=== PATIENT | female | born 1955 | race Caucasian/White ===

== ENCOUNTER 2018-06-18 10:02 | Observation (INO) ==
[2018-06-18] MEDS ORDERED: Temazepam 15 MG Capsule PO PRN (17:22)
[2018-06-18] MEDS ORDERED: Acetaminophen 325 MG Tablet PO PRN (17:22)
[2018-06-18] MEDS ORDERED: Bisacodyl 10 MG Supp RECTAL PRN (17:22)
[2018-06-18] MEDS ORDERED: Dextrose 50% in Water 50 ML Vial IV.PUSH PRN (17:25)
[2018-06-18] MEDS: Furosemide 20 MG Tablet PO SCH (20:43)
[2018-06-18] MEDS: dilTIAZem CD 120 MG Capsule PO SCH (21:51)
[2018-06-18] MEDS: Gabapentin 300 MG Capsule PO SCH (21:51)
[2018-06-18] MEDS: Ferrous Sulfate 325 MG Tablet PO SCH (21:51)
[2018-06-18] MEDS: Senna/Docusate Sodium 8.6/50 MG Tablet PO SCH (21:51)
[2018-06-18] MEDS: Insulin NovoLOG Aspart Correctional Sugar Inj SQ SCH (21:56)
[2018-06-19 06:11] LABS: Baso # (Auto) 0.1 th/mm3 (0.0-0.2); Baso % (Auto) 0.6 % (0.0-2.0); Eos # (Auto) 0.4 th/mm3 (0.0-0.4); Eos % (Auto) 3.9 % (0.0-4.0); Hematocrit 38.8 % (35.0-46.0); Hemoglobin 12.8 gm/dL (11.6-15.3); Lymph # (Auto) 2.6 th/mm3 (1.0-4.8); Lymph % (Auto) 24.3 % (9.0-44.0); Mean Corpuscular HGB Conc 32.9 % (32.0-36.0); Mean Corpuscular Hemoglobin 29.2 pg (27.0-34.0); Mean Corpuscular Volume 88.8 fL (80.0-100.0); Mean Platelet Volume 8.3 fL (7.0-11.0); Mono # (Auto) 0.5 th/mm3 (0.0-0.9); Neut # (Auto) 7.2 th/mm3 (1.8-7.7); Neut % (Auto) 66.2 % (16.0-70.0); Platelet Count 335 th/mm3 (150-450); Red Blood Count 4.37 mil/mm3 (4.00-5.30); Red Cell Distribution Width 14.3 % (11.6-17.2); White Blood Count 10.8 th/mm3 (4.0-11.0)
[2018-06-19 06:20] LABS: Chloride 105 meq/L (98-107); Potassium 4.3 meq/L (3.5-5.1); Sodium 139 meq/L (136-145)
[2018-06-19 06:25] LABS: Albumin 3.7 g/dL (3.4-5.0); Anion Gap 8 meq/L (5-15); Blood Urea Nitrogen 24 mg/dL (7-18); Carbon Dioxide 26.3 meq/L (21.0-32.0); Glucose,Random 115 mg/dL (74-106)
[2018-06-19 06:28] LABS: Alanine Aminotransferase 22 U/L (10-53)
[2018-06-19 06:29] LABS: Aspartate Aminotransferase 17 U/L (15-37); Glomerular Filtration Rate 27 mL/min (>89)
[2018-06-19 06:30] LABS: Total Protein 7.9 g/dL (6.4-8.2)
[2018-06-19 06:31] LABS: Alkaline Phosphatase 110 U/L (45-117)
[2018-06-19] MEDS: Insulin NovoLOG Aspart Correctional Sugar Inj SQ SCH (07:38)
[2018-06-19] MEDS: Senna/Docusate Sodium 8.6/50 MG Tablet PO SCH (08:29)
[2018-06-19] MEDS: dilTIAZem CD 120 MG Capsule PO SCH (08:29)
[2018-06-19] MEDS: Furosemide 20 MG Tablet PO SCH (08:29)
[2018-06-19] MEDS: Gabapentin 300 MG Capsule PO SCH (08:29)
[2018-06-19] MEDS: Ferrous Sulfate 325 MG Tablet PO SCH (08:29)
--- NOTE | 2018-06-19 10:33 | P.HP ---
History of Present Illness Primary Care Physician: UNKNOWN Chief Complaint: Difficulty in urinating History of Present Illness: 63-year-old female with known history of hypertension, hyperlipidemia , diabetes, chronic pain, chronic opiate use, urethral stenosis who presented to the emergency department initially because of difficulty in urinating. Patient states that she has approximately a 3 year history of difficulty in urinating and was diagnosed with urethral dilatation, possible cyst on her urethra that required dilatation. Patient had been doing well but has progressively been getting worse in pain and difficulty with urinating. Patient was told by her CLINICAL TRIAL COORDINATOR doctor that she needed to have dilatation done a couple years ago, however patient did not have insurance at that time he could not afford $800 in order to have the dilatation performed. Patient has not actively pursued any treatment for it since then and has progressively got worse with difficulty with urinating. She states recently has been more severe where yesterday she had pain 10/10 on a pain scale when she was urinating. Because of that she went to the emergency department for evaluation. On presentation patient had significantly elevated blood pressure with systolic pressures in the 200s. Patient was given Lopressor IV with improvement of her blood pressure. Because of that reason and the ER doctor recommended patient be admitted for hypertensive urgency. Patient indicates that she did not take her morning blood pressure medications yesterday. Since the patient has been admitted her blood pressure has been stable. After resumption of her home blood pressure medications her blood pressure is normal and doing well. Patient states that she was able to urinate last night and this morning with mild difficulty. Patient clinically improved at this time. - Diagnosis (1) Accelerated hypertension (2) Dysuria Inpatient Certification: I certify that the inpatient services were ordered in accordance with Medicare regulations governing the order. This includes certification that hospital inpatient services are reasonable and necessary and in the case of services not specified as inpatient-only under 42 CFR 419.22(n), that they are appropriately provided as inpatient services in accordance to with the 2-midnight benchmark under 43 CFR 412.3(e) Review of Systems All other systems reviewed negative except as stated in HPI Gastrointestinal: Reports change in stools, Reports constipation Genitourinary: Reports painful urination PMFSH - History History Provided By: Patient - Medical History Medical History: Medical History (Last Updated 06/19/18 @ 10:15 by MOHAMUD Vences) Diabetes Hyperlipemia Urethral stenosis Anemia Chronic pain Depression GERD (gastroesophageal reflux disease) Hypertension Neuropathic arthritis - Surgical History Surgical History: Surgical History (Last Updated 06/19/18 @ 10:12 by MOHAMUD Vences) History of dilation of urethra History of Hx of cholecystectomy Hx of removal of cyst - Family History Family History: Family History (Last Updated 06/19/18 @ 10:14 by MOHAMUD Vences) Father History of cancer Mother History of leukemia History of diabetes mellitus Brother History of renal failure - Tobacco History Second Hand Smoke Exposure: No Smoking Status: Former smoker Number of Pack Years (if former smoker): 45 - Alcohol History How Often Do You Have a Drink Containing Alcohol: Never - Substance Use History Substance History: No History of Abuse - Travel History Recent Travel in the [place] Within the Last 8 Weeks: No Recent Travel Out of the Country Within the Last 8 Weeks: No - Immunization History Tetanus Immunization: Unsure Hx Influenza Vaccine This Season: Yes Medications and Allergies Active Medications: Active Medications Acetaminophen (Tylenol) 650 mg PO Q4H PRN PRN Reason: Temp > 100.4 Hydrocodone Bitart/Acetaminophen ([place] 7.5/325) 1 tab PO Q6H PRN PRN Reason: pain 6 - 10 Last Admin: 06/19/18 08:32 Dose: 1 tab Al Hydroxide/Mg Hydroxide (Milk Of Magnsai Liq) 30 ml PO Q12H PRN PRN Reason: Mild Constipation Bisacodyl (Dulcolax Supp) 10 mg RECTAL DAILY PRN PRN Reason: SEVERE CONSITIPATION Clonidine HCl (Catapres) 0.1 mg PO Q6H PRN PRN Reason: SBP>180, DBP>95 Cyclobenzaprine HCl (Flexeril) 10 mg PO BID PRN PRN Reason: Muscle Spasm Last Admin: 06/19/18 01:49 Dose: 10 mg Dextrose (D50w Vial) 50 ml IV.PUSH UNSCH PRN PRN Reason: PER HYPOGLYCEMIA PROTOCOL Diltiazem HCl (Cardizem Cd 24hr) 120 mg PO BID [facility] Last Admin: 06/19/18 08:29 Dose: 120 mg Enalaprilat (Vasotec Inj) 1.25 mg IV.PUSH Q6H PRN PRN Reason: SBP>160, DBP>90 Ferrous Sulfate (Ferosul) 325 mg PO BID [facility] Last Admin: 06/19/18 08:29 Dose: 325 mg Furosemide (Lasix) 20 mg PO BID [facility] Last Admin: 06/19/18 08:29 Dose: 20 mg Gabapentin (Neurontin) 600 mg PO BID [facility] Last Admin: 06/19/18 08:29 Dose: 600 mg Glucagon (Glucagon Inj) 1 mg OTHER PRN PRN PRN Reason: for Hypoglycemia Protocol Insulin Aspart (Novolog Insulin Correctional Sugar Inj) 0 unit SQ ACHS [facility]; Protocol Last Admin: 06/19/18 07:38 Dose: Not Given Lactulose (Lactulose Liq) 30 ml PO DAILY PRN PRN Reason: SEVERE CONSITIPATION Ondansetron HCl (Zofran Inj) 4 mg IV.PUSH Q6H PRN PRN Reason: NAUSEA OR VOMITING Pantoprazole Sodium (Protonix) 40 mg PO DAILY [facility] Last Admin: 06/19/18 08:29 Dose: 40 mg Senna/Docusate Sodium (Maribeth-Colace) 1 tab PO BID [facility] Last Admin: 06/19/18 08:29 Dose: 1 tab Sennosides (Senokot) 17.2 mg PO Q12H PRN PRN Reason: Moderate Constipation Last Admin: 06/19/18 01:49 Dose: 17.2 mg Temazepam (Restoril) 15 mg PO HS PRN PRN Reason: INSOMNIA Allergies Allergy/AdvReac Type Severity Reaction Status Date / Time No Known Allergies Allergy Verified 06/18/18 10:55 Home Medications Medication Instructions Recorded Confirmed Type cyclobenzaprine 10 mg PO BID PRN 06/18/18 06/18/18 History diltiazem HCl 120 mg PO BID 06/18/18 06/18/18 History ferrous sulfate 325 mg PO BID 06/18/18 06/18/18 History furosemide [Lasix] 20 mg PO BID 06/18/18 06/18/18 History gabapentin 600 mg PO BID 06/18/18 06/18/18 History hydrocodone-acetaminophen 7.5 mg PO TID PRN 06/18/18 06/18/18 History insulin degludec [Tresiba 88 unit SUB-Q HS 06/18/18 06/18/18 History FlexTouch U-100] insulin lispro [Humalog KwikPen 8 units SUB-Q TID 06/18/18 06/18/18 History Insulin] insulin regular hum U-500 conc SUB-Q 06/18/18 History [Humulin R U-500 (Conc) Insulin] omeprazole 40 mg PO DAILY 06/18/18 06/18/18 History sertraline 100 mg PO DAILY 06/18/18 06/18/18 History Exam Vital signs: Vital Signs 06/18/18 16:58 06/18/18 20:00 06/19/18 00:00 Temperature 97.7 F 96.9 F L 97.4 F L Pulse Rate 90 83 77 Respiratory Rate 18 Blood Pressure 185/82 H 187/84 H 173/79 H Pulse Oximetry 95 96 95 06/19/18 04:00 06/19/18 08:00 Temperature 96.7 F L 98.1 F Pulse Rate 79 82 Respiratory Rate 16 16 Blood Pressure 128/61 120/59 L Pulse Oximetry 95 96 Intake & Output 06/18/18 06/19/18 06/19/18 18:59 06:59 18:59 Output Total 400 / 400 Balance -400 / -400 Weight 91.17 kg Output: Urine 400 / 400 Other: # Voids 4 Date of Last Bowel Movement 06/17/18 Weight On Admission 61 kg Narrative: GENERAL: Well-developed, well-nourished, in no acute distress. alert and orientated HEENT: Head is normocephalic without any lesions or masses noted. Facial features are symmetric. Eyes: Pupils equal round reactive to light. Extraocular muscles are intact. Conjunctivae were clear. Oropharyngeal: Pharynx without any erythema edema. Tongue is midline without deviation. Buccal mucosa is moist without any masses or lesions NECK: Supple without any masses. Trachea midline no deviation. No JVD, no bruits are appreciated CARDIAC: Regular rhythm, regular rate. S1/S2 are heard. No murmurs gallops or rubs. LUNGS: Clear to auscultation bilaterally. No wheeze, rhonchi or rales. No use of accessory muscles on inspiration or expiration. ABDOMEN: Soft, nontender. Nondistended. Bowel sounds heard in all 4 quadrants. No organomegaly or masses. Negative rebound, negative guarding EXTREMITIES: No edema, pulses are equal bilaterally. No cyanosis or clubbing NEUROLOGY: Mood and affect appear appropriate. Cranial nerves II through XII grossly intact. Muscle strength 5/5 in upper and lower extremities bilaterally. Deep tendon reflexes are 2+ in upper and lower extremities bilaterally. Results - Labs CBC & Chem 7: 06/19/18 05:58 06/19/18 05:58 Labs: Laboratory Results - last 24 hr 06/18/18 06/19/18 06/19/18 21:50 05:58 05:58 CBC w Diff Auto diff final WBC 10.8 RBC 4.37 Hgb 12.8 Hct 38.8 MCV 88.8 MCH 29.2 MCHC 32.9 RDW 14.3 Plt Count 335 MPV 8.3 Neut % (Auto) 66.2 Lymph % (Auto) 24.3 [place] % (Auto) 5.0 Eos % (Auto) 3.9 Baso % (Auto) 0.6 Neut # (Auto) 7.2 Lymph # (Auto) 2.6 [place] # (Auto) 0.5 Eos # (Auto) 0.4 Baso # (Auto) 0.1 WBC Differential . Differential Comment . Sodium 139 Potassium 4.3 D Chloride 105 Carbon Dioxide 26.3 Anion Gap 8 BUN 24 H Creatinine 1.90 H Estimated GFR 27 L POC Glucose 99 Random Glucose 115 H Calcium 9.0 Total Bilirubin 0.5 AST 17 ALT 22 Alkaline Phosphatase 110 Total Protein 7.9 D Albumin 3.7 Caprini VTE Risk Assessment Caprini VTE Risk Assessment: Moderate/High Risk (score >= 2) Caprini Risk Assessment Model: Point Value = 1 Point Value = 2 Point Value = 3 Point Value = 5 Age 41-60 Minor surgery BMI > 25 kg/m2 Swollen legs Varicose veins or History of unexplained or recurrent spontaneous Oral contraceptives or hormone replacement Sepsis (< 1 month) Serious lung disease, including pneumonia (< 1 month) Abnormal pulmonary function Acute myocardial infarction Congestive heart failure (< 1 month) History of inflammatory bowel disease Medical patient at bed rest Age 61-74 Arthroscopic surgery Major open surgery (> 45 min) Laparoscopic surgery (> 45 min) Malignancy Confined to bed (> 72 hours) Immobilizing plaster cast Central venous access Age >= 75 History of VTE Family history of VTE Factor V Leiden Prothrombin [id number] Lupus anticoagulant Anticardiolipin antibodies Elevated serum homocysteine Heparin-induced thrombocytopenia Other congenital or acquired thrombophilia Stroke (< 1 month) Elective arthroplasty Hip, pelvis, or leg fracture Acute spinal cord injury (< 1 month) Prophylaxis Regimen: Total Risk Factor Score Risk Level Prophylaxis Regimen 0-1 Low Early ambulation 2 Moderate Order ONE of the following: *Sequential Compression Device (SCD) *Heparin 5000 units SQ BID 3-4 Higher Order ONE of the following medications: *Heparin 5000 units SQ TID *Enoxaparin/Lovenox 40 mg SQ daily (WT < 150 kg, CrCl > 30 mL/min) *Enoxaparin/Lovenox 30 mg SQ daily (WT < 150 kg, CrCl > 10-29 mL/min) *Enoxaparin/Lovenox 30 mg SQ BID (WT < 150 kg, CrCl > 30 mL/min) AND/OR *Sequential Compression Device (SCD) 5 or more Highest Order ONE of the following medications: *Heparin 5000 units SQ TID (Preferred with Epidurals) *Enoxaparin/Lovenox 40 mg SQ daily (WT < 150 kg, CrCl > 30 mL/min) *Enoxaparin/Lovenox 30 mg SQ daily (WT < 150 kg, CrCl > 10-29 mL/min) *Enoxaparin/Lovenox 30 mg SQ BID (WT < 150 kg, CrCl > 30 mL/min) AND *Sequential Compression Device (SCD) Assessment and Plan - Assessment (1) Accelerated hypertension Code(s): I10 - Essential (primary) hypertension Status: Acute (2) Dysuria Code(s): R30.0 - Dysuria Status: Acute - Plan Accelerated hypertension -Likely secondary to painful urination, and not taking her home medications -Status post Lopressor IV 1 in the emergency department with improvement -Home medications have been continued with stability and improvement of her blood pressure Dysuria -Likely secondary to her chronic issue of urethral stenosis in combination with opiate use -Patient states that she urinated last night and this morning without any significant difficulty -Counseled patient on the need to have urethral stenosis done with urologist or CLINICAL TRIAL COORDINATOR in outpatient setting to improve her symptoms and condition Diabetes -Accu-Cheks with sliding scale insulin Chronic pain -Home medications were continued DVT prevention -Sequential compression devices Discharge Planning: Discharge home in stable condition Activity: Ad gume. Diet: Healthy heart diet/diabetic diet Medication per medication reconciliation Follow-up with primary medical doctor in 1 week
== END 2018-06-19 11:26 | disposition home or self-care (01) ==
LOC: PH3 15:44 → PHEDDLT 15:44 → PH3 15:45 → INTOOBSV 15:45
PROVIDERS: ADMIT Family Medicine; ATTEND Family Medicine